=== PATIENT | female | born 1990 | race Caucasian/White ===

== ENCOUNTER 2023-10-06 09:39 | Outpatient (CLI) | payer OTHER, SELFPAY ==
--- NOTE | 2023-10-06 09:45 | MM_ITS ---
Patient: AWLI MORRIS Facility:?[facility] Patient ID:?[id number] Site Patient ID:?[id number]. Site :?1990 Study:?XRay-Breast Bilateral 3D W/CAD-10/06/2023 10:35:07 AM Ordering Physician:?David Goins Final Report: BILATERAL DIGITAL DIAGNOSTIC MAMMOGRAM WITH COMPUTER-AIDED DETECTION, 10/06/2023 BILATERAL BREAST ULTRASOUND, 10/06/2023 CLINICAL HISTORY: BILATERAL breast nipple discharge. COMPARISON: None, baseline. TECHNIQUE: Digital BILATERAL mammogram in 4 projections. Real-time ultrasound imaging of BILATERAL breast with imaging documentation. BREAST COMPOSITION: Scattered fibroglandular densities. FINDINGS: 3D CC/MLO BILATERAL mammogram images submitted. No suspicious masses or architectural distortion. No suspicious calcifications or adenopathy. Targeted LEFT breast ultrasound performed in the periareolar tissues. An incidental simple cyst is present at 12 o`clock 3 cm from the nipple measuring 6 x 3 x 5 mm. Targeted RIGHT breast ultrasound performed in the periareolar space. Normal fibroglandular tissue is present. IMPRESSION: No suspicious findings. No evidence of malignancy. No evidence of papilloma or duct ectasia. Incidental simple cyst on the LEFT. RECOMMENDATIONS: Age-appropriate screening mammography. Clinical follow-up. BI-RADS Category 2: Benign Results and recommendations were discussed with the patient through an court interpreter. Dictated by Chetan Estrada MD @ 10/06/2023 11:13:01 AM SHENG/osmar DW/Dictated by: Chetan Estrada MD @ 10/06/2023 11:13:00 AM Signed by:?Chetan Estrada MD @10/06/2023 11:34:18 AM (Electronic Signature)
--- NOTE | 2023-10-06 10:15 | US_ITS ---
Patient: WALI MORRIS Facility:?[facility] Patient ID:?[id number] Site Patient ID:?[id number]. Site :?1990 Study:?US-Breast Bilateral Dr. Estrada to read-10/06/2023 10:31:43 AM Ordering Physician:GHASSAN Final Report: Please see BILATERAL digital diagnostic mammogram same date for results. DW/Dictated by: Chetan Estrada MD @ 10/06/2023 11:13:00 AM Signed by:?Chetan Estrada MD @10/06/2023 11:34:16 AM (Electronic Signature)
== END 2023-10-06 09:40 | disposition home or self-care (01) ==
PROVIDERS: Visit Provider Advanced Practice Midwife
DX: N64.52 Nipple discharge (principal); N60.02 Solitary cyst of left breast
CPT/HCPCS: 76642; 77066; T1013; G0279

== ENCOUNTER 2024-05-02 15:39 | Outpatient (CLI) | payer SELFPAY ==
[2024-05-04 21:36] LABS: HPV Source Cervical; HPV, High Risk by TMA Not Detected
== END 2024-05-02 15:40 | disposition home or self-care (01) ==
PROVIDERS: Visit Provider Obstetrics & Gynecology
DX: Z12.4 Encounter for screening for malignant neoplasm of cervix (principal)
CPT/HCPCS: 82550; 82728; 83036; 83735; 85025; 87624; 87625; 88141; 88142